=== PATIENT | female | born 1995 | race Caucasian/White ===

== ENCOUNTER 2019-07-15 12:42 | Inpatient (IN) | payer BC ==
[2019-07-15] MEDS ORDERED: Sodium Chloride 0.9% 10 ML Syringe FLUSH PRN (13:44)
[2019-07-15] MEDS ORDERED: Ondansetron 4 MG/2 ML SDV IVPUSH PRN (13:44)
[2019-07-15] MEDS ORDERED: Nalbuphine 10 MG/ML Syringe IVPUSH PRN (13:44)
[2019-07-15] MEDS ORDERED: Oxytocin/Lactated Ringers 10 UNIT/1,000 ML BAG IV SCH ×2 (13:45→21:00)
[2019-07-15] MEDS: Lactated Ringers 1,000 ML IV SCH ×4 (15:42→19:39)
[2019-07-15] MEDS ORDERED: ePHEDrine 50 MG/ML SDV IVPUSH PRN (16:00)
[2019-07-15] MEDS ORDERED: diphenhydrAMINE 50 MG/ML SDV IVPUSH PRN (16:00)
[2019-07-15] MEDS ORDERED: fentaNYL 100 MCG/2 ML SDV EPIDUR PRN (16:00)
--- NOTE | 2019-07-15 16:15 | PCM.LDHP ---
L&D History of Present Illness - General Date of Service: 07/15/19 Admit Problem/Dx: Patient Status Order with Admit Dx/Problem 07/15/19 12:49 Patient Status [ADT] Routine 07/15/19 13:45 Patient Status [ADT] Routine Admission Diagnosis/Problem Admission Diagnosis/Problem Source of Information: Patient History Limitations: Reports: No Limitations - History of Present Illness Introduction:: 24 year old at 40w3 here in active labor. Contractions worsening over past 2 hours. No loss of fluid. No vaginal bleeding. 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: , 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) Other OB/BYN History: hymenectomy - Past Surgical History HEENT Surgical History: Reports: Adenoidectomy, Tonsillectomy Social & Family History - Family History Family Medical History: Noncontributory - Tobacco Use Smoking Status *Q: Never Smoker Second Hand Smoke Exposure: No - Recreational Drug Use Recreational Drug Use: No H&P Review of Systems - Review of Systems: Review Of Systems: See Below General: Reports: No Symptoms HEENT: Reports: No Symptoms Pulmonary: Reports: No Symptoms Cardiovascular: Reports: No Symptoms Gastrointestinal: Reports: No Symptoms Genitourinary: Reports: No Symptoms Musculoskeletal: Reports: No Symptoms Skin: Reports: No Symptoms Psychiatric: Reports: No Symptoms Neurological: Reports: No Symptoms Hematologic/Lymphatic: Reports: No Symptoms Immunologic: Reports: No Symptoms L&D Exam - Exam Exam: See Below - Vital Signs Vital Signs: Last Vital Signs Temp 36.8 C 07/15/19 13:15 Pulse Resp 16 07/15/19 13:15 BP 133/93 H 07/15/19 13:15 Pulse Ox 96 07/15/19 13:15 Weight: 98.339 kg - OB Specific Contraction Intensity: Moderate Movement: Active Heart Tones: Present Heart Rate (FHR) Variability: Moderate (6-25 bmp) Presentation: Vertex - Soliz Score Soliz Score Cervix Position: Midposition Soliz Score Consistency: Soft Soliz Score Effacement: >80% Soliz Score Dilation: > 5 cm Soliz Score 's Station: -1 ,0 Soliz Score Total: 11 - Exam General: Alert, Oriented HEENT: PERRLA, Conjunctiva Clear, EACs Clear, EOMI, Hearing Intact, Mucosa Moist & [place], Nares Patent, Normal Nasal Septum, Posterior Pharynx Clear, TMs Clear Neck: Supple, Trachea Midline Lungs: Clear to Auscultation, Normal Respiratory Effort Cardiovascular: Regular Rate, Regular Rhythm GI/Abdominal Exam: Normal Bowel Sounds, Soft, Non-Tender, No Organomegaly, No Distention, No Abnormal Bruit, No Mass, Pelvis Stable Extremities: Normal Inspection, Normal Range of Motion, Non-Tender, No Pedal Edema, Normal Capillary Refill Skin: Warm, Dry, Intact Neurological: Cranial Nerves Intact, Reflexes Equal Bilateral Psychiatric: Alert, Normal Affect, Normal Mood - Patient Data Lab Results Last 24 hrs: Laboratory Results - last 24 hr 07/15/19 07/15/19 07/15/19 Range/Units 13:55 13:55 14:25 WBC 9.06 (3.98-10.04) K/mm3 RBC 4.35 (3.98-5.22) M/mm3 Hgb 12.7 (11.2-15.7) gm/dl Hct 38.8 (34.1-44.9) % MCV 89.2 (79.4-94.8) fl MCH 29.2 (25.6-32.2) pg MCHC 32.7 (32.2-35.5) g/dl RDW Std Deviation 47.3 H (36.4-46.3) fL Plt Count 210 (182-369) K/mm3 MPV 10.1 (9.4-12.3) fl Neut % (Auto) 66.9 (34.0-71.1) % Lymph % (Auto) 22.1 (19.3-51.7) % [place] % (Auto) 10.4 (4.7-12.5) % Eos % (Auto) 0.4 L (0.7-5.8) Baso % (Auto) 0.2 (0.1-1.2) % Neut # (Auto) 6.06 (1.56-6.13) K/mm3 Lymph # (Auto) 2.00 (1.18-3.74) K/mm3 [place] # (Auto) 0.94 H (0.24-0.36) K/mm3 Eos # (Auto) 0.04 (0.04-0.36) K/mm3 Baso # (Auto) 0.02 (0.01-0.08) K/mm3 Sodium 140 (136-145) mEq/L Potassium 3.9 (3.5-5.1) mEq/L Chloride 104 (98-107) mEq/L Carbon Dioxide 22 (21-32) mEq/L Anion Gap 17.9 H (5-15) BUN 7 (7-18) mg/dL Creatinine 0.7 (0.55-1.02) mg/dL Est Cr Clr Drug Dosing 114.01 mL/min Estimated GFR (MDRD) > 60 (>60) mL/min BUN/Creatinine Ratio 10.0 L (14-18) Glucose 87 (74-106) mg/dL Calcium 9.4 (8.5-10.1) mg/dL Total Bilirubin 0.5 (0.2-1.0) mg/dL AST 12 L (15-37) U/L ALT 16 (14-59) U/L Alkaline Phosphatase 158 H (46-116) U/L Total Protein 6.9 (6.4-8.2) g/dl Albumin 2.7 L (3.4-5.0) g/dl Globulin 4.2 gm/dL Albumin/Globulin Ratio 0.6 L (1-2) Ur Random Creatinine 34.3 (30.0-125.0) mg/dL U Random Total Protein < 6.0 (0.0-11.8) mg/dL Protein/Creatinin Ratio TNP Result Diagrams: 07/15/19 13:55 07/15/19 13:55 Problem List Initiated/Reviewed/Updated: Yes Orders Last 24hrs: Active Orders 24 hr Category Date Time Status Patient Status [ADT] Routine ADT 07/15/19 12:49 Active Patient Status [ADT] Routine ADT 07/15/19 13:45 Active Activity as Tolerated [RC] PFP Care 07/15/19 13:45 Active Communication Order [RC] ASDIRECTED Care 07/15/19 13:45 Active Heart Tones [RC] ASDIRECTED Care 07/15/19 13:45 Active Non Stress Test [RC] PER UNIT ROUTINE Care 07/15/19 12:49 Active Non Stress Test [RC] PER UNIT ROUTINE Care 07/15/19 13:45 Active Notify Provider [RC] ASDIRECTED Care 07/15/19 16:00 Active Notify Provider [RC] PFP Care 07/15/19 13:45 Active Notify Provider [RC] PRN Care 07/15/19 13:45 Active Peripheral IV Care [RC] . DIRECTED Care 07/15/19 13:45 Active Vital Signs [RC] PER UNIT ROUTINE Care 07/15/19 12:49 Active Vital Signs [RC] PER UNIT ROUTINE Care 07/15/19 13:45 Active Regular Diet [DIET] Diet 07/15/19 Dinner Active BLOOD BANK HOLD SPECIMEN [BBK] Stat Lab 07/15/19 13:44 Ordered RAPID PLASMA REAGIN,RPR [CHEM] Routine Lab 07/15/19 13:55 Received Bupivacaine/fentaNYL/NS [fentaNYL/Bupivacaine/NS 2 MCG- Med 07/15/19 16:00 Active 0.125% 100 ML] 100 ml EPIDUR ASDIRECTED PRN Lactated Ringers [Ringers, Lactated] 1,000 ml Med 07/15/19 13:45 Active IV ASDIRECTED Nalbuphine [Nubain] Med 07/15/19 13:44 Active 10 mg IVPUSH Q2H PRN Ondansetron [Zofran] Med 07/15/19 13:44 Active 4 mg IVPUSH Q4H PRN Oxytocin/Lactated Ringers [Pitocin in LR 10 Units/1,000 Med 07/15/19 13:45 Active ML] 10 unit in 1,000 ml IV .CONTINUOUS Sodium Chloride 0.9% [Saline Flush] Med 07/15/19 13:44 Active 10 ml FLUSH ASDIRECTED PRN diphenhydrAMINE [Benadryl] Med 07/15/19 16:00 Active 25 mg IVPUSH Q6H PRN ePHEDrine [ePHEDrine sulfate] Med 07/15/19 16:00 Active 5 mg IVPUSH ASDIRECTED PRN fentaNYL [Sublimaze] Med 07/15/19 16:00 Active 100 mcg EPIDUR Q3H PRN Electronic Heart Tones Ext w TOCO [WOMSER] Oth 07/15/19 13:45 Ordered Routine Electronic Heart Tones Internal [WOMSER] Per Unit Oth 07/15/19 13:45 Ordered Routine Peripheral IV Insertion Adult [OM.PC] Routine Oth 07/15/19 13:45 Ordered Resuscitation Status Routine Resus Stat 07/15/19 12:49 Ordered Medication Orders Diphenhydramine HCl (Benadryl) 25 mg IVPUSH Q6H PRN PRN Reason: pruritis Ephedrine Sulfate (Ephedrine Sulfate) 5 mg IVPUSH ASDIRECTED PRN PRN Reason: Hypotension Fentanyl (Sublimaze) 100 mcg EPIDUR Q3H PRN PRN Reason: Pain Fentanyl/Bupivacaine HCl (Fentanyl/Bupivacaine/Ns 2 Mcg-0.125% 100 Ml) 100 ml EPIDUR ASDIRECTED PRN PRN Reason: Pain Lactated Ringer's (Ringers, Lactated) 1,000 mls @ 100 mls/hr IV ASDIRECTED ELIZABETH Last Admin: 07/15/19 15:42 Dose: 100 mls/hr Oxytocin/Lactated Ringer's (Pitocin In Lr 10 Units/1,000 Ml) 10 unit in 1,000 mls @ 500 mls/hr IV .CONTINUOUS ELIZABETH Nalbuphine HCl (Nubain) 10 mg IVPUSH Q2H PRN PRN Reason: Pain Ondansetron HCl (Zofran) 4 mg IVPUSH Q4H PRN PRN Reason: Nausea/Vomiting Sodium Chloride (Saline Flush) 10 ml FLUSH ASDIRECTED PRN PRN Reason: Keep Vein Open Assessment/Plan Comment:: 24 year old here in active labor. Doing well. Epidural now Anticipate
--- NOTE | 2019-07-15 16:27 | PCM.PREANE ---
Preanesthetic Assessment - Anesthesia/Transfusion/Family Hx Anesthesia History: Prior Anesthesia Without Reaction Transfusion History: No Prior Transfusion(s) - Review of Systems General: No Symptoms Pulmonary: No Symptoms Cardiovascular: No Symptoms Gastrointestinal: No Symptoms Neurological: No Symptoms Other: Reports: None - Physical Assessment Vital Signs: Last Vital Signs Temp 98.2 F 07/15/19 13:15 Pulse Resp 16 07/15/19 13:15 BP 133/93 H 07/15/19 13:15 Pulse Ox 96 07/15/19 13:15 Height: 1.68 m Weight: 98.339 kg ASA Class: 2 Mental Status: Alert & Oriented x3 Airway Class: Mallampati = 4 Dentition: Reports: Normal Dentition ROM/Head Extension: Full Lungs: Clear to Auscultation, Normal Respiratory Effort Cardiovascular: Regular Rate, Regular Rhythm - Lab Values: Laboratory Last Values WBC 9.06 K/mm3 (3.98-10.04) 07/15/19 13:55 RBC 4.35 M/mm3 (3.98-5.22) 07/15/19 13:55 Hgb 12.7 gm/dl (11.2-15.7) 07/15/19 13:55 Hct 38.8 % (34.1-44.9) 07/15/19 13:55 MCV 89.2 fl (79.4-94.8) 07/15/19 13:55 MCH 29.2 pg (25.6-32.2) 07/15/19 13:55 MCHC 32.7 g/dl (32.2-35.5) 07/15/19 13:55 RDW Std Deviation 47.3 fL (36.4-46.3) H 07/15/19 13:55 Plt Count 210 K/mm3 (182-369) 07/15/19 13:55 MPV 10.1 fl (9.4-12.3) 07/15/19 13:55 Neut % (Auto) 66.9 % (34.0-71.1) 07/15/19 13:55 Lymph % (Auto) 22.1 % (19.3-51.7) 07/15/19 13:55 [place] % (Auto) 10.4 % (4.7-12.5) 07/15/19 13:55 Eos % (Auto) 0.4 (0.7-5.8) L 07/15/19 13:55 Baso % (Auto) 0.2 % (0.1-1.2) 07/15/19 13:55 Neut # (Auto) 6.06 K/mm3 (1.56-6.13) 07/15/19 13:55 Lymph # (Auto) 2.00 K/mm3 (1.18-3.74) 07/15/19 13:55 [place] # (Auto) 0.94 K/mm3 (0.24-0.36) H 07/15/19 13:55 Eos # (Auto) 0.04 K/mm3 (0.04-0.36) 07/15/19 13:55 Baso # (Auto) 0.02 K/mm3 (0.01-0.08) 07/15/19 13:55 Sodium 140 mEq/L (136-145) 07/15/19 13:55 Potassium 3.9 mEq/L (3.5-5.1) 07/15/19 13:55 Chloride 104 mEq/L (98-107) 07/15/19 13:55 Carbon Dioxide 22 mEq/L (21-32) 07/15/19 13:55 Anion Gap 17.9 (5-15) H 07/15/19 13:55 BUN 7 mg/dL (7-18) 07/15/19 13:55 Creatinine 0.7 mg/dL (0.55-1.02) 07/15/19 13:55 Est Cr Clr Drug Dosing 114.01 mL/min 07/15/19 13:55 Estimated GFR (MDRD) > 60 mL/min (>60) 07/15/19 13:55 BUN/Creatinine Ratio 10.0 (14-18) L 07/15/19 13:55 Glucose 87 mg/dL (74-106) 07/15/19 13:55 Calcium 9.4 mg/dL (8.5-10.1) 07/15/19 13:55 Total Bilirubin 0.5 mg/dL (0.2-1.0) 07/15/19 13:55 AST 12 U/L (15-37) L 07/15/19 13:55 ALT 16 U/L (14-59) 07/15/19 13:55 Alkaline Phosphatase 158 U/L (46-116) H 07/15/19 13:55 Total Protein 6.9 g/dl (6.4-8.2) 07/15/19 13:55 Albumin 2.7 g/dl (3.4-5.0) L 07/15/19 13:55 Globulin 4.2 gm/dL 07/15/19 13:55 Albumin/Globulin Ratio 0.6 (1-2) L 07/15/19 13:55 Ur Random Creatinine 34.3 mg/dL (30.0-125.0) 07/15/19 14:25 U Random Total Protein < 6.0 mg/dL (0.0-11.8) 07/15/19 14:25 Protein/Creatinin Ratio TNP 07/15/19 14:25 - Allergies Allergies/Adverse Reactions: Allergies Allergy/AdvReac Type Severity Reaction Status Date / Time No Known Allergies Allergy Verified 07/15/19 12:49 - Acknowledgements Anesthesia Type Planned: Epidural Pt an Appropriate Candidate for the Planned Anesthesia: Yes Alternatives and Risks of Anesthesia Discussed w Pt/Guardian: Yes Pt/Guardian Understands and Agrees with Anesthesia Plan: Yes 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: , 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) Other OB/BYN History: hymenectomy - Past Surgical History HEENT Surgical History: Reports: Adenoidectomy, Tonsillectomy - SUBSTANCE USE Smoking Status *Q: Never Smoker Second Hand Smoke Exposure: No Recreational Drug Use History: No - HOME MEDS Home Medications: Home Meds [id number]/Iron Fumarate/FA/DSS [ 19 Tablet] 1 each PO DAILY 07/15/19 [ History] - CURRENT (IN HOUSE) MEDS Current Meds: Current Medications Diphenhydramine HCl (Benadryl) 25 mg IVPUSH Q6H PRN PRN Reason: pruritis Ephedrine Sulfate (Ephedrine Sulfate) 5 mg IVPUSH ASDIRECTED PRN PRN Reason: Hypotension Fentanyl (Sublimaze) 100 mcg EPIDUR Q3H PRN PRN Reason: Pain Fentanyl/Bupivacaine HCl (Fentanyl/Bupivacaine/Ns 2 Mcg-0.125% 100 Ml) 100 ml EPIDUR ASDIRECTED PRN PRN Reason: Pain Lactated Ringer's (Ringers, Lactated) 1,000 mls @ 100 mls/hr IV ASDIRECTED ELIZABETH Last Admin: 07/15/19 16:16 Dose: 100 mls/hr Oxytocin/Lactated Ringer's (Pitocin In Lr 10 Units/1,000 Ml) 10 unit in 1,000 mls @ 500 mls/hr IV .CONTINUOUS ELIZABETH Nalbuphine HCl (Nubain) 10 mg IVPUSH Q2H PRN PRN Reason: Pain Ondansetron HCl (Zofran) 4 mg IVPUSH Q4H PRN PRN Reason: Nausea/Vomiting Sodium Chloride (Saline Flush) 10 ml FLUSH ASDIRECTED PRN PRN Reason: Keep Vein Open
[2019-07-15] MEDS: Bupivacaine/fentaNYL/NS 100 ML Bag EPIDUR PRN ×2 (16:34→23:39)
[2019-07-16] MEDS ORDERED: Lidocaine 2% with EPINEPHrine 1:200,000 20 ML SDV ONE
[2019-07-16] MEDS ORDERED: Lidocaine 1% 50 ML MDV ONE (00:56)
--- NOTE | 2019-07-16 01:48 | PCM.SN ---
- Free Text/Narrative Note: Stage I - Patient presented in active labor. AROM. Progressed to complete with overall reassuring heart tones and epidural anesthesia. Stage II - of viable female, weight 4390g, 9/9 APGARS at 0047. Head delivered in controlled manner over intact perineum. Body and shoulders atraumatically. To maternal abdomen. Cord clamped and cut after one minute. Cord blood collected. Stage III - of intact placenta. 3vc. 2nd degree midline laceration repaired with 3-0 vicryl. EBL 300.
[2019-07-16] MEDS ORDERED: Ketorolac 30 MG/ML SDV IVPUSH ONE (02:00)
[2019-07-16] MEDS ORDERED: Benzocaine/Menthol 20%-0.5% Spray 56 GM Canister TOP PRN (02:17)
[2019-07-16] MEDS ORDERED: Hydrocortisone Acetate 25 MG Supp RECTAL PRN (02:17)
[2019-07-16] MEDS ORDERED: Witch Hazel Medicated Pads 40/Jar TOP PRN (02:17)
[2019-07-16] MEDS ORDERED: Acetaminophen 325 MG Tab PO PRN (02:17)
--- NOTE | 2019-07-16 08:32 | PCM.PNPP ---
- General Info Date of Service: 07/16/19 Functional Status: Reports: Pain Controlled - Review of Systems General: Reports: No Symptoms HEENT: Reports: No Symptoms Pulmonary: Reports: No Symptoms Cardiovascular: Reports: No Symptoms Gastrointestinal: Reports: No Symptoms Genitourinary: Reports: No Symptoms Musculoskeletal: Reports: No Symptoms Skin: Reports: No Symptoms Neurological: Reports: No Symptoms Psychiatric: Reports: No Symptoms - General Info Date of Service: 07/16/19 - Patient Data Vital Signs - Most Recent: Last Vital Signs Temp 37.0 C 07/16/19 03:56 Pulse 88 07/16/19 03:56 Resp 15 07/16/19 03:56 BP 141/84 H 07/16/19 03:56 Pulse Ox 97 07/16/19 03:56 Weight - Most Recent: 98.339 kg I&O - Last 24 Hours: Intake & Output 07/15/19 07/16/19 07/16/19 22:59 06:59 14:59 Intake Total 3000 1000 Output Total 1250 Balance 1750 1000 Lab Results - Last 24 Hours: Laboratory Results - last 24 hr 07/15/19 07/15/19 07/15/19 Range/Units 13:55 13:55 13:55 WBC 9.06 (3.98-10.04) K/mm3 RBC 4.35 (3.98-5.22) M/mm3 Hgb 12.7 (11.2-15.7) gm/dl Hct 38.8 (34.1-44.9) % MCV 89.2 (79.4-94.8) fl MCH 29.2 (25.6-32.2) pg MCHC 32.7 (32.2-35.5) g/dl RDW Std Deviation 47.3 H (36.4-46.3) fL Plt Count 210 (182-369) K/mm3 MPV 10.1 (9.4-12.3) fl Neut % (Auto) 66.9 (34.0-71.1) % Lymph % (Auto) 22.1 (19.3-51.7) % [place] % (Auto) 10.4 (4.7-12.5) % Eos % (Auto) 0.4 L (0.7-5.8) Baso % (Auto) 0.2 (0.1-1.2) % Neut # (Auto) 6.06 (1.56-6.13) K/mm3 Lymph # (Auto) 2.00 (1.18-3.74) K/mm3 [place] # (Auto) 0.94 H (0.24-0.36) K/mm3 Eos # (Auto) 0.04 (0.04-0.36) K/mm3 Baso # (Auto) 0.02 (0.01-0.08) K/mm3 Sodium 140 (136-145) mEq/L Potassium 3.9 (3.5-5.1) mEq/L Chloride 104 (98-107) mEq/L Carbon Dioxide 22 (21-32) mEq/L Anion Gap 17.9 H (5-15) BUN 7 (7-18) mg/dL Creatinine 0.7 (0.55-1.02) mg/dL Est Cr Clr Drug Dosing 114.01 mL/min Estimated GFR (MDRD) > 60 (>60) mL/min BUN/Creatinine Ratio 10.0 L (14-18) Glucose 87 (74-106) mg/dL Calcium 9.4 (8.5-10.1) mg/dL Total Bilirubin 0.5 (0.2-1.0) mg/dL AST 12 L (15-37) U/L ALT 16 (14-59) U/L Alkaline Phosphatase 158 H (46-116) U/L Total Protein 6.9 (6.4-8.2) g/dl Albumin 2.7 L (3.4-5.0) g/dl Globulin 4.2 gm/dL Albumin/Globulin Ratio 0.6 L (1-2) Ur Random Creatinine (30.0-125.0) mg/dL U Random Total Protein (0.0-11.8) mg/dL Protein/Creatinin Ratio RPR Non-reactive (NONREACTIVE) 07/15/19 07/16/19 Range/Units 14:25 05:35 WBC 19.02 H (3.98-10.04) K/mm3 RBC 3.87 L (3.98-5.22) M/mm3 Hgb 11.3 (11.2-15.7) gm/dl Hct 34.5 (34.1-44.9) % MCV 89.1 (79.4-94.8) fl MCH 29.2 (25.6-32.2) pg MCHC 32.8 (32.2-35.5) g/dl RDW Std Deviation 47.0 H (36.4-46.3) fL Plt Count 190 (182-369) K/mm3 MPV 10.5 (9.4-12.3) fl Neut % (Auto) (34.0-71.1) % Lymph % (Auto) (19.3-51.7) % [place] % (Auto) (4.7-12.5) % Eos % (Auto) (0.7-5.8) Baso % (Auto) (0.1-1.2) % Neut # (Auto) (1.56-6.13) K/mm3 Lymph # (Auto) (1.18-3.74) K/mm3 [place] # (Auto) (0.24-0.36) K/mm3 Eos # (Auto) (0.04-0.36) K/mm3 Baso # (Auto) (0.01-0.08) K/mm3 Sodium (136-145) mEq/L Potassium (3.5-5.1) mEq/L Chloride (98-107) mEq/L Carbon Dioxide (21-32) mEq/L Anion Gap (5-15) BUN (7-18) mg/dL Creatinine (0.55-1.02) mg/dL Est Cr Clr Drug Dosing mL/min Estimated GFR (MDRD) (>60) mL/min BUN/Creatinine Ratio (14-18) Glucose (74-106) mg/dL Calcium (8.5-10.1) mg/dL Total Bilirubin (0.2-1.0) mg/dL AST (15-37) U/L ALT (14-59) U/L Alkaline Phosphatase (46-116) U/L Total Protein (6.4-8.2) g/dl Albumin (3.4-5.0) g/dl Globulin gm/dL Albumin/Globulin Ratio (1-2) Ur Random Creatinine 34.3 (30.0-125.0) mg/dL U Random Total Protein < 6.0 (0.0-11.8) mg/dL Protein/Creatinin Ratio TNP RPR (NONREACTIVE) Med Orders - Current: Current Medications Acetaminophen (Tylenol) 650 mg PO Q4H PRN PRN Reason: mild pain or fever Benzocaine/Menthol (Dermoplast Pain Relief [place]) 0 gm TOP ASDIRECTED PRN PRN Reason: Perineal Comfort Measure Hydrocortisone Acetate (Anucort-Hc) 25 mg RECTAL BID PRN PRN Reason: Hemorrhoid pain Witch Gemma (Tucks) 1 pad TOP ASDIRECTED PRN PRN Reason: Pain Discontinued Medications Diphenhydramine HCl (Benadryl) 25 mg IVPUSH Q6H PRN PRN Reason: pruritis Ephedrine Sulfate (Ephedrine Sulfate) 5 mg IVPUSH ASDIRECTED PRN PRN Reason: Hypotension Fentanyl (Sublimaze) 100 mcg EPIDUR Q3H PRN PRN Reason: Pain Last Admin: 07/15/19 16:34 Dose: 100 mcg Fentanyl/Bupivacaine HCl (Fentanyl/Bupivacaine/Ns 2 Mcg-0.125% 100 Ml) 100 ml EPIDUR ASDIRECTED PRN PRN Reason: Pain Last Admin: 07/15/19 23:39 Dose: 100 ml Lactated Ringer's (Ringers, Lactated) 1,000 mls @ 100 mls/hr IV ASDIRECTED ELIZABETH Last Admin: 07/15/19 19:39 Dose: 100 mls/hr Oxytocin/Lactated Ringer's (Pitocin In Lr 10 Units/1,000 Ml) 10 unit in 1,000 mls @ 500 mls/hr IV .CONTINUOUS ELIZABETH Oxytocin/Lactated Ringer's (Pitocin In Lr 10 Units/1,000 Ml) 10 unit in 1,000 mls @ 12 mls/hr IV TITRATE ELIZABETH; Protocol Last Titration: 07/16/19 01:30 Dose: 250 mls/hr Ketorolac Tromethamine (Toradol) 30 mg IVPUSH ONETIME ONE Stop: 07/16/19 02:01 Last Admin: 07/16/19 03:54 Dose: 30 mg Lidocaine HCl (Xylocaine 1%) Confirm Administered Dose 50 ml .ROUTE .STK-MED ONE Stop: 07/16/19 00:57 Last Admin: 07/16/19 00:55 Dose: 50 ml Nalbuphine HCl (Nubain) 10 mg IVPUSH Q2H PRN PRN Reason: Pain Ondansetron HCl (Zofran) 4 mg IVPUSH Q4H PRN PRN Reason: Nausea/Vomiting Sodium Chloride (Saline Flush) 10 ml FLUSH ASDIRECTED PRN PRN Reason: Keep Vein Open - Interaction Disposition, : [place] to Nursery Support Person: - Exam General: Alert, Oriented HEENT: Pupils Equal Neck: Supple Lungs: Clear to Auscultation, Normal Respiratory Effort Cardiovascular: Regular Rate, Regular Rhythm GI/Abdominal Exam: Normal Bowel Sounds, Soft, Non-Tender, No Organomegaly, No Distention, No Abnormal Bruit, No Mass, Pelvis Stable Extremities: Normal Inspection, Normal Range of Motion, Non-Tender, No Pedal Edema, Normal Capillary Refill Wound/Incisions: Healing Well Neurological: No New Focal Deficit Psy/Mental Status: Alert, Normal Affect, Normal Mood - Problem List Review Problem List Initiated/Reviewed/Updated: Yes - My Orders Last 24 Hours: My Active Orders 07/15/19 12:49 Resuscitation Status Routine 07/15/19 13:44 BLOOD BANK HOLD SPECIMEN [BBK] Stat 07/15/19 13:45 Heart Tones [RC] ASDIRECTED Vital Signs [RC] PER UNIT ROUTINE 07/16/19 02:17 Activity as Tolerated [RC] PER UNIT ROUTINE Communication Order [RC] ASDIRECTED Acetaminophen [Tylenol] 650 mg PO Q4H PRN Benzocaine/Menthol [Dermoplast Pain Relief [place]] See Dose Instructions TOP ASDIRECTED PRN Hydrocortisone Acetate [Anucort-HC] 25 mg RECTAL BID PRN witch Gemma [Tucks] 1 pad TOP ASDIRECTED PRN Assess Lochia [WOMSER] Per Unit Routine Assess Uterine Involution [WOMSER] Per Unit Routine Breast Pump [WOMSER] Per Unit Routine Heat Therapy [OM.PC] PRN Medication Administration Instruction [OM.PC] Routine Perineal Care [OM.PC] Per Unit Routine Sitz Bath [OM.PC] Per Unit Routine 07/16/19 Breakfast Regular Diet [DIET] 07/17/19 02:17 Heat Therapy [OM.PC] PRN - Assessment Assessment:: Term delivery. Doing well. PPD0
--- NOTE | 2019-07-16 14:23 | PCM48HPAN ---
Post Anesthesia Note - EVALUATION WITHIN 48HRS OF ANESTHETIC Vital Signs in Normal Range: Yes Patient Participated in Evaluation: Yes Respiratory Function Stable: Yes Airway Patent: Yes Cardiovascular Function Stable: Yes Hydration Status Stable: Yes Pain Control Satisfactory: Yes Nausea and Vomiting Control Satisfactory: Yes Mental Status Recovered: Yes Vital Signs: Last Vital Signs Temp 36.7 C 07/16/19 09:26 Pulse 83 07/16/19 09:26 Resp 15 07/16/19 09:26 BP 131/86 07/16/19 09:26 Pulse Ox 98 07/16/19 09:26
--- NOTE | 2019-07-17 09:41 | PCM.DCSUM1 ---
Discharge Summary - Hospital Course Brief History: 24 year old presented in active labor. Uncomplicated course Diagnosis: Stroke: No - Discharge Data Discharge Date: 07/17/19 Discharge Disposition: Home, Self-Care 01 Condition: Good - Referral to Home Health Primary Care Physician: Chrissie Us MD - Patient Instructions Diet: Regular Diet as Tolerated Diet, Other: 500-700 extra calories for breast feeding Activity: As Tolerated, No Lifting Over 10 Pounds, No Strenuous Activities Driving: May Drive Today Showering/Bathing: May Shower Notify Provider of: Fever, Increased Pain, Swelling and Redness, Drainage, Nausea and/or Vomiting Other/Special Instructions: pelvic rest for 6 weeks, call for severe bleeding, temp of 101 or greater, or severe pain. - Discharge Plan *PRESCRIPTION DRUG MONITORING PROGRAM REVIEWED*: No *COPY OF PRESCRIPTION DRUG MONITORING REPORT IN PATIENT CATHY: No Home Medications: Home Meds [id number]/Iron Fumarate/FA/DSS [ 19 Tablet] 1 each PO DAILY 07/15/19 [ History] Patient Handouts: Vaginal Delivery, Care After Referrals: Kiera Santiago MD [Physician] - - Discharge Summary/Plan Comment DC Time >30 min.: No - General Info Date of Service: 07/17/19 Functional Status: Reports: Pain Controlled - Review of Systems General: Reports: No Symptoms HEENT: Reports: No Symptoms Pulmonary: Reports: No Symptoms Cardiovascular: Reports: No Symptoms Gastrointestinal: Reports: No Symptoms Genitourinary: Reports: No Symptoms Musculoskeletal: Reports: No Symptoms Skin: Reports: No Symptoms Neurological: Reports: No Symptoms Psychiatric: Reports: No Symptoms - Patient Data Vitals - Most Recent: Last Vital Signs Temp 36.7 C 07/17/19 02:58 Pulse 76 07/17/19 02:58 Resp 14 07/17/19 02:58 BP 122/78 07/17/19 02:58 Pulse Ox 100 07/17/19 02:58 Weight - Most Recent: 98.339 kg Med Orders - Current: Current Medications Acetaminophen (Tylenol) 650 mg PO Q4H PRN PRN Reason: mild pain or fever Benzocaine/Menthol (Dermoplast Pain Relief Chancellor) 0 gm TOP ASDIRECTED PRN PRN Reason: Perineal Comfort Measure Last Admin: 07/16/19 08:51 Dose: 1 each Hydrocortisone Acetate (Anucort-Hc) 25 mg RECTAL BID PRN PRN Reason: Hemorrhoid pain Witmarques [place] (Tucks) 1 pad TOP ASDIRECTED PRN PRN Reason: Pain Last Admin: 07/16/19 08:51 Dose: 1 each Discontinued Medications Diphenhydramine HCl (Benadryl) 25 mg IVPUSH Q6H PRN PRN Reason: pruritis Ephedrine Sulfate (Ephedrine Sulfate) 5 mg IVPUSH ASDIRECTED PRN PRN Reason: Hypotension Fentanyl (Sublimaze) 100 mcg EPIDUR Q3H PRN PRN Reason: Pain Last Admin: 07/15/19 16:34 Dose: 100 mcg Fentanyl/Bupivacaine HCl (Fentanyl/Bupivacaine/Ns 2 Mcg-0.125% 100 Ml) 100 ml EPIDUR ASDIRECTED PRN PRN Reason: Pain Last Admin: 07/15/19 23:39 Dose: 100 ml Lactated Ringer's (Ringers, Lactated) 1,000 mls @ 100 mls/hr IV ASDIRECTED ELIZABETH Last Admin: 07/15/19 19:39 Dose: 100 mls/hr Oxytocin/Lactated Ringer's (Pitocin In Lr 10 Units/1,000 Ml) 10 unit in 1,000 mls @ 500 mls/hr IV .CONTINUOUS ELIZABETH Oxytocin/Lactated Ringer's (Pitocin In Lr 10 Units/1,000 Ml) 10 unit in 1,000 mls @ 12 mls/hr IV TITRATE ELIZABETH; Protocol Last Titration: 07/16/19 01:30 Dose: 250 mls/hr Ketorolac Tromethamine (Toradol) 30 mg IVPUSH ONETIME ONE Stop: 07/16/19 02:01 Last Admin: 07/16/19 03:54 Dose: 30 mg Lidocaine HCl (Xylocaine 1%) Confirm Administered Dose 50 ml .ROUTE .STK-MED ONE Stop: 07/16/19 00:57 Last Admin: 07/16/19 00:55 Dose: 50 ml Lidocaine/Epinephrine (Xylocaine-Mpf 2%-Epi 1:200,000) 20 ml .ROUTE .STK-MED ONE Stop: 07/16/19 00:01 Nalbuphine HCl (Nubain) 10 mg IVPUSH Q2H PRN PRN Reason: Pain Ondansetron HCl (Zofran) 4 mg IVPUSH Q4H PRN PRN Reason: Nausea/Vomiting Sodium Chloride (Saline Flush) 10 ml FLUSH ASDIRECTED PRN PRN Reason: Keep Vein Open - Exam General: Reports: Alert, Oriented HEENT: Reports: Pupils Equal, Pupils Reactive, EOMI, Mucous Membr. Moist/[place] Neck: Reports: Supple Lungs: Reports: Clear to Auscultation, Normal Respiratory Effort Cardiovascular: Reports: Regular Rate, Regular Rhythm GI/Abdominal Exam: Normal Bowel Sounds, Soft, Non-Tender, No Organomegaly, No Distention, No Abnormal Bruit, No Mass, Pelvis Stable Rectal (Female) Exam: Normal Exam, Normal Rectal Tone Back Exam: Reports: Normal Inspection, Full Range of Motion Extremities: Normal Inspection, Normal Range of Motion, Non-Tender, No Pedal Edema, Normal Capillary Refill Wound/Incisions: Reports: Healing Well Neurological: Reports: No New Focal Deficit Psy/Mental Status: Reports: Alert, Normal Affect, Normal Mood
== END 2019-07-17 10:15 | disposition home or self-care (01) | DRG 560 ==
LOC: JD.OB 12:42 → JD.OBCHECK 12:42 → JD.OB 13:45 → OBSVTOIN 07-16 00:47
PROVIDERS: ADMIT Obstetrics & Gynecology; ATTEND Obstetrics & Gynecology
PROC: 10E0XZZ Delivery of Products of Conception, External Approach (ICD-10-PCS; principal; 2019-07-16)
PROC: 0KQM0ZZ Repair Perineum Muscle, Open Approach (ICD-10-PCS; 2019-07-16)
PROC: 10907ZC Drainage of Amniotic Fluid, Therapeutic from Products of Conception, Via Natural or Artificial Opening (ICD-10-PCS; 2019-07-16)
PROC: 3E0R3BZ Introduction of Anesthetic Agent into Spinal Canal, Percutaneous Approach (ICD-10-PCS; 2019-07-16)
DX: O48.0 Post-term pregnancy (principal); Z3A.40 40 weeks gestation of pregnancy; Z37.0 Single live birth; Z79.899 Other long term (current) drug therapy; Z90.89 Acquired absence of other organs; O70.1 Second degree perineal laceration during delivery
CPT/HCPCS: 36415; 51702; 59025; 59409; 80053; 82570; 84156; 85025; 85027; 86592; A9270-GY; J1885; J2001; J2590; J3010; J7120

== ENCOUNTER 2022-06-24 06:49 | Inpatient (IN) | payer BC ==
[2022-06-24] MEDS ORDERED: Sodium Chloride 0.9% 10 ML Syringe FLUSH PRN (06:52)
[2022-06-24] MEDS ORDERED: Ondansetron 4 MG/2 ML SDV IVPUSH PRN (06:52)
[2022-06-24] MEDS ORDERED: Nalbuphine 10 MG/0.5 ML Syringe IVPUSH PRN (06:52)
[2022-06-24] MEDS ORDERED: Oxytocin/Lactated Ringers 10 UNIT/1,000 ML BAG IV SCH ×2 (07:00)
[2022-06-24] MEDS: Lactated Ringers 1,000 ML IV SCH ×3 (07:59→15:14)
[2022-06-24] MEDS ORDERED: Sodium Chloride 0.9% 10 ML Syringe FLUSH SCH (09:00)
[2022-06-24] MEDS ORDERED: fentaNYL 100 MCG/2 ML SDV ONE (11:16)
[2022-06-24] MEDS ORDERED: ePHEDrine 50 MG/ML SDV IVPUSH PRN (11:30)
[2022-06-24] MEDS ORDERED: fentaNYL 100 MCG/2 ML SDV EPIDUR PRN (11:30)
[2022-06-24] MEDS ORDERED: diphenhydrAMINE 50 MG/ML SDV IVPUSH PRN (11:30)
[2022-06-24] MEDS: Bupivacaine/fentaNYL/NS 100 ML Bag EPIDUR PRN ×2 (11:32→16:55)
[2022-06-24] MEDS ORDERED: Ropivacaine 0.2% PF 2 MG/ML 20 ML SDV ONE (19:00)
[2022-06-24] MEDS ORDERED: ceFAZolin 2 GM in Sodium Chloride 0.9% 50 ML IV ONE (19:47)
[2022-06-24] MEDS ORDERED: Methylergonovine 0.2 MG/1 ML Amp IM STA (19:47)
[2022-06-24] MEDS: Witch Hazel Medicated Pads 40/Jar TOP PRN ×2 (21:30→21:35)
[2022-06-24] MEDS: Benzocaine/Menthol 20%-0.5% Spray 78 GM Cannister TOP PRN ×2 (21:30→21:35)
[2022-06-24] MEDS: Docusate Sodium 100 MG Cap PO PRN (21:55)
[2022-06-24] MEDS: Ibuprofen 600 MG Tab PO PRN (21:55)
[2022-06-25] MEDS: Ibuprofen 600 MG Tab PO PRN ×3 (04:00→19:48)
[2022-06-25] MEDS: Docusate Sodium 100 MG Cap PO PRN ×2 (08:32→19:48)
[2022-06-25] MEDS: Acetaminophen 325 MG Tab PO PRN ×2 (11:20→16:29)
[2022-06-26] MEDS: Ibuprofen 600 MG Tab PO PRN (04:09)
== END 2022-06-26 09:45 | disposition home or self-care (01) | DRG 560 ==
LOC: JD.OBCHECK 06:49 → JD.OB 06:51 → JD.OBCHECK 06:52 → JD.OB 06:53 → OBSVTOIN 19:08 → JD.OB 19:09
PROVIDERS: ADMIT Obstetrics & Gynecology; ATTEND Obstetrics & Gynecology
PROC: 10D07Z6 Extraction of Products of Conception, Vacuum, Via Natural or Artificial Opening (ICD-10-PCS; principal; 2022-06-24)
PROC: 10907ZC Drainage of Amniotic Fluid, Therapeutic from Products of Conception, Via Natural or Artificial Opening (ICD-10-PCS; 2022-06-24)
PROC: 3E033VJ Introduction of Other Hormone into Peripheral Vein, Percutaneous Approach (ICD-10-PCS; 2022-06-24)
PROC: 3E0R3BZ Introduction of Anesthetic Agent into Spinal Canal, Percutaneous Approach (ICD-10-PCS; 2022-06-24)
PROC: 00HU33Z Insertion of Infusion Device into Spinal Canal, Percutaneous Approach (ICD-10-PCS; 2022-06-24)
DX: O30.043 Twin pregnancy, dichorionic/diamniotic, third trimester (principal); Z3A.38 38 weeks gestation of pregnancy; Z37.2 Twins, both liveborn
CPT/HCPCS: 36415; 51702; 59025; 59409; 85027; 86592; 86850; 86900; 86901; A9270-GY; J0690; J2210; J2590; J2795; J3490; J7120

== ENCOUNTER 2023-02-05 17:50 | Emergency (ER) | payer BC ==
[2023-02-05] MEDS ORDERED: Sodium Chloride 0.9% 10 ML Syringe FLUSH PRN (18:25)
[2023-02-05] MEDS ORDERED: HYDROmorphone 0.5 MG/0.5 ML Syringe IVPUSH ONE (18:30)
[2023-02-05] MEDS ORDERED: Sodium Chloride 0.9% 1,000 ML IV STA (18:30)
[2023-02-05] MEDS ORDERED: Ondansetron 4 MG/2 ML SDV IVPUSH ONE (18:30)
[2023-02-05 18:52] LABS: BASOPHILS PERCENT AUTO 0.3 % (0.0-1.0); EOSINOPHILS PERCENT AUTO 0.4 % (0.0-6.0); HEMATOCRIT 40.2 % (37.0-47.0); HEMOGLOBIN 13.8 gm/dl (12.0-16.0); IMMATURE GRAN ABSOLUTE AUTO 0.03 K/mm3 (0.00-0.05); IMMATURE GRAN PERCENT AUTO 0.3 % (0.0-0.4); LYMPHOCYTES ABSOLUTE AUTO 1.5 K/mm3 (1.0-4.8); LYMPHOCYTES PERCENT AUTO 15.1 % (24.0-44.0); MEAN CORPUSCULAR HEMOGLOBIN 30.5 pg (28.0-32.0); MEAN CORPUSCULAR HGB CONC 34.3 g/dl (32.0-36.0); MEAN CORPUSCULAR VOLUME 88.7 fl (83.0-99.0); MEAN PLATELET VOLUME 9.1 fl (9.4-12.3); MONOCYTES ABSOLUTE AUTO 0.4 K/mm3 (0.0-0.8); MONOCYTES PERCENT AUTO 4.1 % (0.0-8.0); NEUTROPHILS ABSOLUTE AUTO 7.8 K/mm3 (1.8-7.7); NEUTROPHILS PERCENT AUTO 79.8 % (41.0-71.0); PLATELET COUNT,PLT 246 K/mm3 (150-400); RED BLOOD CELL COUNT 4.53 M/mm3 (4.10-5.30); WHITE BLOOD CELL COUNT,WBC 9.82 K/mm3 (3.9-11.3)
[2023-02-05 19:05] LABS: APPEARANCE,URINE CLOUDY (Clear); BILIRUBIN,URINE NEGATIVE (Negative); COLOR,URINE YELLOW (Yellow); GLUCOSE,URINE NEGATIVE (Negative); KETONES,URINE NEGATIVE (Negative); LEUKOCYTE ESTERASE,URINE NEGATIVE (Negative); NITRITE,URINE NEGATIVE (Negative); OCCULT BLOOD,URINE NEGATIVE (Negative); PH,URINE 8.5 (5.0-8.0); PROTEIN,URINE 2+ (Negative); UROBILINOGEN,URINE 0.2 (0.2-1.0)
[2023-02-05 19:12] LABS: AMORPHOUS SEDIMENT,URINE MANY /hpf (NOT SEEN); BACTERIA,URINE MANY /hpf (FEW); MUCUS,URINE NOT SEEN /hpf (FEW); RBC,URINE 0-5 /hpf (0-5); SQUAMOUS EPITHELIAL CELLS,UR 0-5 /hpf (0-5); WBC,URINE 0-5 /hpf (0-5)
[2023-02-05 19:14] LABS: ALANINE AMINOTRANSFERASE,ALT 26 U/L (14-59); ALKALINE PHOSPHATASE 82 U/L (46-116); ANION GAP 14.9 (5-15); ASPARTATE AMNIOTRANSFERASE,AST 14 U/L (15-37); BILIRUBIN TOTAL 0.2 mg/dL (0.2-1.0); BLOOD UREA NITROGEN,BUN 16 mg/dL (7-18); BUN/CREATININE RATIO 22.9 (14-18); C-REACTIVE PROTEIN <0.2 mg/dL (<1.0); CALCIUM 9.6 mg/dL (8.5-10.1); CARBON DIOXIDE,CO2 27 mEq/L (21-32); CHLORIDE,CL 102 mEq/L (98-107); CREATININE 0.7 mg/dL (0.55-1.02); ESTIMATED GFR 120 mL/min (>60); GLUCOSE RANDOM 125 mg/dL (70-99); LIPASE 133 U/L (73-393); POTASSIUM,K 3.9 mEq/L (3.5-5.1); SODIUM,NA 140 mEq/L (136-145)
[2023-02-05] MEDS ORDERED: Ketorolac 30 MG/ML SDV IVPUSH ONE (19:23)
[2023-02-05] MEDS ORDERED: Dicyclomine 10 MG Cap PO ONE (19:23)
== END 2023-02-05 19:50 | disposition home or self-care (01) ==
LOC: JD.ED 17:50
DX: K52.9 Noninfective gastroenteritis and colitis, unspecified (principal)
CPT/HCPCS: 36415; 74176; 80053; 81001; 83690; 84703; 85025; 86140; 96361; 96374; 96375; 99284; A9270; J1170; J1885; J2405; J3490; J7030

== ENCOUNTER 2023-12-10 18:04 | Emergency (ER) | payer BC ==
[2023-12-10 19:29] LABS: APPEARANCE,URINE CLEAR (Clear); BILIRUBIN,URINE NEGATIVE (Negative); COLOR,URINE YELLOW (Yellow); GLUCOSE,URINE NEGATIVE (Negative); KETONES,URINE NEGATIVE (Negative); LEUKOCYTE ESTERASE,URINE NEGATIVE (Negative); NITRITE,URINE NEGATIVE (Negative); OCCULT BLOOD,URINE NEGATIVE (Negative); PH,URINE 7.5 (5.0-8.0); PROTEIN,URINE NEGATIVE (Negative); UROBILINOGEN,URINE 0.2 (0.2-1.0)
[2023-12-10] MEDS: fentaNYL 100 MCG/2 ML SDV IVPUSH ONE ×2 (19:39→21:08)
[2023-12-10] MEDS: Ondansetron 4 MG/2 ML SDV IVPUSH ONE (19:41)
[2023-12-10] MEDS: Lactated Ringers 1,000 ML IV ONE (19:44)
[2023-12-10 19:46] LABS: BASOPHILS PERCENT AUTO 0.4 % (0.0-1.0); EOSINOPHILS PERCENT AUTO 0.3 % (0.0-6.0); HEMATOCRIT 40.6 % (37.0-47.0); HEMOGLOBIN 13.3 gm/dl (12.0-16.0); IMMATURE GRAN ABSOLUTE AUTO 0.01 K/mm3 (0.00-0.05); IMMATURE GRAN PERCENT AUTO 0.1 % (0.0-0.4); LYMPHOCYTES ABSOLUTE AUTO 1.3 K/mm3 (1.0-4.8); LYMPHOCYTES PERCENT AUTO 16.7 % (24.0-44.0); MEAN CORPUSCULAR HEMOGLOBIN 29.4 pg (28.0-32.0); MEAN CORPUSCULAR HGB CONC 32.8 g/dl (32.0-36.0); MEAN CORPUSCULAR VOLUME 89.6 fl (83.0-99.0); MONOCYTES ABSOLUTE AUTO 0.6 K/mm3 (0.0-0.8); MONOCYTES PERCENT AUTO 7.7 % (0.0-8.0); NEUTROPHILS ABSOLUTE AUTO 5.6 K/mm3 (1.8-7.7); NEUTROPHILS PERCENT AUTO 74.8 % (41.0-71.0); PLATELET COUNT,PLT 243 K/mm3 (150-400); RED BLOOD CELL COUNT 4.53 M/mm3 (4.10-5.30)
[2023-12-10] MEDS: Sodium Chloride 0.9% 10 ML Syringe FLUSH PRN (19:46)
[2023-12-10] MEDS: Sodium Chloride 0.9% 10 ML Syringe FLUSH ONE (20:00)
[2023-12-10] MEDS: Iopamidol 612 MG/ML 100 ML Bottle IVPUSH ONE (20:00)
[2023-12-10 20:08] LABS: ANION GAP 12.2 (5-15); BILIRUBIN TOTAL 0.6 mg/dL (0.2-1.0); BUN/CREATININE RATIO 14.3 (14-18); CALCIUM 9.7 mg/dL (8.5-10.1); CREATININE 0.7 mg/dL (0.55-1.02); EST CRCL DRUG DOSING (CG) 110.01 mL/min; POTASSIUM,K 4.2 mEq/L (3.5-5.1)
[2023-12-10 20:10] LABS: LACTIC ACID 0.7 mmol/L (0.4-2.0)
[2023-12-10] MEDS ORDERED: Naloxone 0.4 MG/ML SDV IVPUSH PRN (20:20)
[2023-12-10] MEDS: Hyoscyamine 0.125 MG Tab.SL SL ONE (21:59)
== END 2023-12-10 22:20 | disposition home or self-care (01) ==
LOC: JD.ED 18:04
DX: K80.00 Calculus of gallbladder with acute cholecystitis without obstruction (principal); Z79.899 Other long term (current) drug therapy
CPT/HCPCS: 36415; 74177; 76705; 80053; 81003; 83605; 83690; 85025; 96361; 96374; 96375; 96376; 99284; A9270; J2405; J3010; J3490; J7120; Q9967

== ENCOUNTER 2023-12-21 08:46 | Day surgery (SDC) | payer BC ==
[~2023-12-21 08:46] MED LIST: Lidocaine 1% 2 ML ONE; Midazolam 1 MG/ML 2 ML SDV ONE; Propofol 200 MG/20 ML SDV ONE; Rocuronium 50 MG/5 ML Vial ONE; Sodium Chloride 0.9% 10 ML Syringe FLUSH PRN; Sodium Chloride 0.9% 10 ML Syringe FLUSH SCH; ceFAZolin 2 GM Vial ONE; fentaNYL 250 MCG/5 ML SDV ONE
[2023-12-21] MEDS: Lactated Ringers 1,000 ML IV SCH (09:15)
[2023-12-21] MEDS: Gabapentin 300 MG Cap PO ONE (09:21)
[2023-12-21] MEDS: Acetaminophen 325 MG Tab PO ONE (09:21)
[2023-12-21] MEDS ORDERED: Rocuronium 50 MG/5 ML Vial ONE (09:45)
[2023-12-21] MEDS ORDERED: Ketorolac 30 MG/ML SDV ONE (09:51)
[2023-12-21] MEDS ORDERED: Dexamethasone 4 MG/ML 5 ML MDV ONE (09:51)
[2023-12-21] MEDS ORDERED: Ondansetron 4 MG/2 ML SDV ONE (09:51)
[2023-12-21] MEDS ORDERED: Sugammadex Sodium 200 MG/2 ML VIAL IV ONE (10:32)
[2023-12-21] MEDS ORDERED: Ondansetron 4 MG/2 ML SDV IVPUSH PRN (10:33)
[2023-12-21] MEDS ORDERED: HYDROmorphone 0.5 MG/0.5 ML Syringe IVPUSH PRN (10:33)
[2023-12-21] MEDS ORDERED: Lactated Ringers 1,000 ML ONE (10:40)
[2023-12-21] MEDS: Lidocaine 1% 30 ML SDV ONE (11:06)
[2023-12-21] MEDS: EPINEPHrine 1 MG/ML SDV ONE (11:06)
[2023-12-21] MEDS: Bupivacaine 0.5% 30 ML SDV ONE (11:06)
[2023-12-21] MEDS: fentaNYL 100 MCG/2 ML SDV IVPUSH PRN (12:30)
[2023-12-21] MEDS ORDERED: oxyCODONE 5 MG Tab PO PRN (13:48)
== END 2023-12-21 14:45 | disposition home or self-care (01) ==
LOC: JD.SDS 08:46
PROVIDERS: ATTEND Surgery
DX: K80.10 Calculus of gallbladder with chronic cholecystitis without obstruction (principal); K82.8 Other specified diseases of gallbladder; Z79.899 Other long term (current) drug therapy
CPT/HCPCS: 47562; 81025; A9270; J0171; J0665; J0690; J1100; J1885; J2250; J2405; J2704; J3010; J3490; J7120; 00790